=== PATIENT | female | born 1965 ===

== ENCOUNTER 2020-08-15 06:00 | Outpatient (RCR) | payer BC, SELFPAY | END 2020-09-11 23:59 | disposition home or self-care (01) | LOC: GPT 06:00 | PROVIDERS: Referring Provider Orthopaedic Surgery; Visit Provider Orthopaedic Surgery | DX: Z47.89 Encounter for other orthopedic aftercare (principal) | CPT/HCPCS: 97032; 97110; 97112; 97116; 97161; 97164; 97530; 97760 ==

== ENCOUNTER 2020-09-12 06:00 | Outpatient (RCR) | payer BC, SELFPAY | END 2020-10-11 23:59 | disposition home or self-care (01) | LOC: GPT 06:00 | PROVIDERS: Referring Provider Orthopaedic Surgery; Visit Provider Orthopaedic Surgery | DX: Z47.89 Encounter for other orthopedic aftercare (principal) | CPT/HCPCS: 97110 ==